=== PATIENT | female | born 1990 | race African-American/Black ===

== ENCOUNTER 2018-09-14 01:28 | Emergency (ER) | payer SELFPAY ==
[~2018-09-14] VITALS: Ht 167.6 cm; Wt 59.0 kg
[2018-09-14 01:48] VITALS: Ht 167.6 cm; Wt 59.0 kg
[2018-09-14 07:17] VITALS: BP 129/75
== END 2018-09-14 07:17 | disposition short-term general hospital (02) ==
LOC: ED 01:28
DX: S02.81XA Fracture of other specified skull and facial bones, right side, initial encounter for closed fracture (principal); S02.19XA Other fracture of base of skull, initial encounter for closed fracture; S01.81XA Laceration without foreign body of other part of head, initial encounter; S00.83XA Contusion of other part of head, initial encounter; S09.8XXA Other specified injuries of head, initial encounter; G93.89 Other specified disorders of brain; V43.52XA Car driver injured in collision with other type car in traffic accident, initial encounter; Y93.89 Activity, other specified; Y92.89 Other specified places as the place of occurrence of the external cause; Y99.8 Other external cause status
CPT/HCPCS: 90715; J2001; J7030